=== PATIENT | female | born 1945 | race Caucasian/White ===

== ENCOUNTER 2017-06-21 18:51 | Emergency (ER) | payer MEDICARE ==
[~2017-06-21] VITALS: Ht 152.4 cm; Wt 95.2 kg
== END 2017-06-21 22:22 | disposition home or self-care (01) ==
LOC: ER 18:51
DX: I10 Essential (primary) hypertension (principal); Z87.891 Personal history of nicotine dependence
CPT/HCPCS: 99283

== ENCOUNTER → 2019-06-08 | Outpatient (CLI) | payer MEDICARE ==
[2019-06-08 15:42] LABS: BASOPHILS ABSOLUTE AUTO 0.07 K/mm3 (0.00-0.23); BASOPHILS PERCENT AUTO 1 % (0-2); EOSINOPHILS ABSOLUTE AUTO 0.14 K/mm3 (0.00-0.68); EOSINOPHILS PERCENT AUTO 1 % (0-6); Hematocrit 37.9 % (33.0-51.0); Hemoglobin 12.3 g/dL (11.5-16.0); IMMATURE GRAN ABSOLUTE AUTO 0.07 K/mm3 (0.00-0.10); IMMATURE GRAN PERCENT AUTO 1 % (0-1); LYMPHOCYTES ABSOLUTE AUTO 1.58 K/mm3 (0.84-5.20); LYMPHOCYTES PERCENT AUTO 12 % (21-46); MONOCYTES ABSOLUTE AUTO 1.27 K/mm3 (0.16-1.47); MONOCYTES PERCENT AUTO 9 % (4-13); Mean Corpuscular HGB 29.9 pg (26.0-34.0); Mean Corpuscular HGB Conc 32.5 g/dL (31.5-36.5); Mean Corpuscular Volume 92 fL (80-100); NEUTROPHILS ABSOLUTE AUTO 10.57 K/mm3 (1.96-9.15); NEUTROPHILS PERCENT AUTO 77 % (41-73); Platelet Count 495 K/mm3 (150-400); RDW Coefficient Variation 13.7 % (11.7-14.2); RDW Standard Deviation 46.5 fL (35.1-46.3); Red Blood Cell Count 4.11 M/mm3 (3.80-5.20)
[2019-06-08 15:46] LABS: Bun/Creatinine Ratio 16.9 (12.0-20.0); Creatinine, Blood 1.24 mg/dL (0.40-1.00)
== END | disposition home or self-care (01) ==
LOC: LAB EV 15:36 → LAB SHORT 15:36
PROVIDERS: Physician Assistant Surgical
DX: R06.00 Dyspnea, unspecified (principal)
CPT/HCPCS: 80048; 83880; 85025

== ENCOUNTER 2019-06-15 20:36 | Inpatient (IN) | payer MEDICARE ==
[~2019-06-15] VITALS: Ht 162.6 cm; Wt 114.4 kg
[2019-06-15 21:11] LABS: BASOPHILS ABSOLUTE AUTO 0.04 K/mm3 (0.00-0.23); BASOPHILS PERCENT AUTO 0 % (0-2); EOSINOPHILS ABSOLUTE AUTO 0.16 K/mm3 (0.00-0.68); EOSINOPHILS PERCENT AUTO 2 % (0-6); Hematocrit 36.8 % (33.0-51.0); Hemoglobin 11.8 g/dL (11.5-16.0); IMMATURE GRAN ABSOLUTE AUTO 0.09 K/mm3 (0.00-0.10); IMMATURE GRAN PERCENT AUTO 1 % (0-1); LYMPHOCYTES ABSOLUTE AUTO 1.63 K/mm3 (0.84-5.20); LYMPHOCYTES PERCENT AUTO 17 % (21-46); MONOCYTES ABSOLUTE AUTO 1.03 K/mm3 (0.16-1.47); MONOCYTES PERCENT AUTO 11 % (4-13); Mean Corpuscular HGB 29.6 pg (26.0-34.0); Mean Corpuscular HGB Conc 32.1 g/dL (31.5-36.5); Mean Corpuscular Volume 93 fL (80-100); Mean Platelet Volume 9.3 fL (9.1-12.4); NEUTROPHILS ABSOLUTE AUTO 6.57 K/mm3 (1.96-9.15); NEUTROPHILS PERCENT AUTO 69 % (41-73); Platelet Count 474 K/mm3 (150-400); RDW Coefficient Variation 13.6 % (11.7-14.2); RDW Standard Deviation 46.6 fL (35.1-46.3); Red Blood Cell Count 3.98 M/mm3 (3.80-5.20); White Blood Cell Count 9.52 K/mm3 (4.00-11.30)
[2019-06-15 21:33] LABS: Alanine Aminotransfer (ALT/SGP 36 U/L (12-78); Albumin, Blood 2.9 g/dL (3.4-5.0); Albumin/Globulin Ratio 0.8 (0.8-1.8); Alk Phos 103 U/L (50-136); Anion Gap 6 mmol/L (6-16); Aspartate Aminotrans (AST/SGOT 27 U/L (12-37); Bilirubin, Total 0.3 mg/dL (0.1-1.0); Blood Urea Nitrogen 19 mg/dL (8-24); Bun/Creatinine Ratio 20.4 (12.0-20.0); CO2, Blood 32 mmol/L (21-32); Calcium, Blood 8.6 mg/dL (8.5-10.1); Chloride, Blood 98 mmol/L (98-108); Creatinine, Blood 0.93 mg/dL (0.40-1.00); Globulin, Blood 3.8 g/dL (2.2-4.0); Glomerular Filtration Rate >60 (60-); Glucose, Blood 98 mg/dL (70-99); Potassium, Blood 4.3 mmol/L (3.5-5.5); Sodium, Blood 136 mmol/L (136-145); Total Protein, Blood 6.7 g/dL (6.4-8.2); Troponin I 0.046 ng/mL (0.000-0.040)
[2019-06-16] MEDS ORDERED: POTA10T PO (03:11)
[2019-06-16] MEDS ORDERED: CEFD300 PO (03:12)
[2019-06-16] MEDS ORDERED: ZOCOR20 MG PO (03:12)
[2019-06-16] MEDS ORDERED: FURO40 PO (03:12)
[2019-06-16] MEDS ORDERED: LISI20 PO (03:12)
[2019-06-16] MEDS ORDERED: AMLO5 PO (03:12)
[2019-06-16 06:46] LABS: Campylobacter Sp Not Detected (NOT DETECT); Enteroaggregative E. coli-EAEC Detected (NOT DETECT); Enteropathogenic E. coli-EPEC Detected (NOT DETECT); Enterotoxigenic E. coli-ETEC Not Detected (NOT DETECT); Plesiomonas Shigelloides Not Detected (NOT DETECT); Salmonella Sp Not Detected (NOT DETECT); Vibrio Cholerae Not Detected (NOT DETECT); Vibrio Sp Not Detected (NOT DETECT); Yersinia Enterocolitica Not Detected (NOT DETECT)
[2019-06-16 06:47] LABS: Adenovirus F 40/41 Not Detected (NOT DETECT); Astrovirus Not Detected (NOT DETECT); Cryptosporidium Not Detected (NOT DETECT); Cyclospora Cayetanensis Not Detected (NOT DETECT); E. Coli O157 Not Detected (NOT DETECT); Entamoeba Histolytica Not Detected (NOT DETECT); Giardia Lamblia Not Detected (NOT DETECT); Norovirus GI/GII Not Detected (NOT DETECT); Rotavirus A Not Detected (NOT DETECT); Sapovirus Not Detected (NOT DETECT); Shiga Toxin-prod E. coli-STEC Not Detected (NOT DETECT); Shigella/Enteroin E. coli-EIEC Not Detected (NOT DETECT)
[2019-06-16 10:08] LABS: Adenovirus Not Detected (NOT DETECT); Coronavirus 229E Not Detected (NOT DETECT); Coronavirus HKU1 Detected (NOT DETECT); Coronavirus NL63 Not Detected (NOT DETECT); Coronavirus OC43 Not Detected (NOT DETECT); Human Metapneumovirus Not Detected (NOT DETECT); Human Rhinovirus/Enterovirus Not Detected (NOT DETECT); Influenza A Not Detected (NOT DETECT); Influenza A/2009-H1 Not Detected (NOT DETECT); Influenza A/H1 Not Detected (NOT DETECT); Influenza A/H3 Not Detected (NOT DETECT); Influenza B Not Detected (NOT DETECT); Parainfluenza Virus 1 Not Detected (NOT DETECT); Parainfluenza Virus 2 Not Detected (NOT DETECT); Parainfluenza Virus 3 Not Detected (NOT DETECT)
[2019-06-16 10:09] LABS: Bordetella pertussis Not Detected (NOT DETECT); Chlamydophila pneumoniae Not Detected (NOT DETECT); Mycoplasma pneumoniae Not Detected (NOT DETECT); Parainfluenza Virus 4 Not Detected (NOT DETECT); Respiratory Syncytial Virus Not Detected (NOT DETECT)
--- NOTE | 2019-06-16 12:32 | NUR ---
Echocardiogram completed.
--- NOTE | 2019-06-16 18:18 | NUR ---
SHIFT SUMMARY PATIENT HAS NOT C/O SOB SINCE ARRIVAL TO FLOOR. RESP E/U, O2 @ 2L PER NC. APPETITE GOOD. CONT TO HAVE SMALL LOOSE BM'S AND INCONTINENT OF URINE W/ COUGHING. MOISTURE BARRIER USED WITH ATTENDS CHANGE TO PREVENT SBD. TURNS WELL AND STANDS WELL WHEN SHE DOES USE BSC. PLEASANT AND COOPERATIVE WITH CARE.
--- NOTE | 2019-06-17 06:08 | NUR ---
SHIFT SUMMARY PT RESTED WELL T/O NIGHT. LUNG SOUNDS DIMINISHED WITH INTERMITTENT EXP WHEEZING, DECREASED WITH BREATHING TX Q4H + SOLUMEDROL PER ORDERS. INCONTINENT IN ATTENDS FOR URINE + STOOL. LARGE PROLAPSED RECTUM NOTED, PT REPORTING ED DR REDUCED X2 WHILE IN ED. IVF INFUSING PER ORDERS. GOOD PO INTAKE. PT USES CALL LIGHT FOR ASSISTANCE. RESTING AT THIS TIME IN BED WITH CALL LIGHT IN REACH.
[2019-06-17 06:17] LABS: Albumin, Blood 2.5 g/dL (3.4-5.0); Anion Gap 6 mmol/L (6-16); Blood Urea Nitrogen 21 mg/dL (8-24); CO2, Blood 29 mmol/L (21-32); Calcium, Blood 8.8 mg/dL (8.5-10.1); Chloride, Blood 100 mmol/L (98-108); Creatinine, Blood 0.81 mg/dL (0.40-1.00); Glomerular Filtration Rate >60 (60-); Glucose, Blood 231 mg/dL (70-99); Phosphorus, Blood 2.9 mg/dL (2.5-4.9); Sodium, Blood 135 mmol/L (136-145)
--- NOTE | 2019-06-17 14:01 | NUR ---
SHIFT SUMMARY PT A&OX4, VSS, SOB W/EXERTION, LUNGS DIM, TCDB EDU & ENC. TELE SR 1 DEGREE BLOCK AT 85. INCONTINENT OF STOOL & URINE, ATTENDS ON; LARGE PROLAPSED RECTUM, HOSPITALIST AWARE. TASH PO, DENIES N&V. AMB W/ 1 PP MIN ASSIST TO BRP/CHAIR/BED. WILL REPORT TO NEXT RN.
--- NOTE | 2019-06-17 16:56 | NUR ---
assumed care of pt from lilly hankins rn.
[2019-06-18 05:28] LABS: Hematocrit 36.9 % (33.0-51.0); Hemoglobin 11.6 g/dL (11.5-16.0); Mean Corpuscular HGB 29.4 pg (26.0-34.0); Mean Corpuscular HGB Conc 31.4 g/dL (31.5-36.5); Mean Corpuscular Volume 93 fL (80-100); Mean Platelet Volume 9.6 fL (9.1-12.4); Platelet Count 504 K/mm3 (150-400); RDW Coefficient Variation 13.2 % (11.7-14.2); RDW Standard Deviation 46.1 fL (35.1-46.3); Red Blood Cell Count 3.95 M/mm3 (3.80-5.20); White Blood Cell Count 19.08 K/mm3 (4.00-11.30)
[2019-06-18 05:51] LABS: Albumin, Blood 2.5 g/dL (3.4-5.0); Anion Gap 8 mmol/L (6-16); Blood Urea Nitrogen 26 mg/dL (8-24); Bun/Creatinine Ratio 32.6 (12.0-20.0); CO2, Blood 28 mmol/L (21-32); Calcium, Blood 8.8 mg/dL (8.5-10.1); Chloride, Blood 97 mmol/L (98-108); Glomerular Filtration Rate >60 (60-); Glucose, Blood 230 mg/dL (70-99); Phosphorus, Blood 2.9 mg/dL (2.5-4.9); Potassium, Blood 5.2 mmol/L (3.5-5.5); Sodium, Blood 133 mmol/L (136-145)
--- NOTE | 2019-06-18 05:53 | NUR ---
PATIENT CONTINUES TO HAVE SOB WITH ANY EXERTION. SHE IS VERY ACTIVE IN BED AND IS ABLE TO HELP WITH ALL CARE. SHE IS INCONTINENT OF URINE AND HAS BEEN CHANGED 5 TIMES THIS NIGHT. SHE HAS HAD LOOSE STOOL MIXED WITH THE VOIDS THROUGH OUT THE NIGHT. NO OTHER ACUTE CHANGES.
--- NOTE | 2019-06-18 19:03 | NUR ---
SUMMARY PATIENT SAT IN CHAIR MOST OF THIS SHIFT, FAMILY IN TO VISIT. PT STATES FEELING BETTER- HAS FAINT AUDIBLE WHEEZES WITH ACTIVITY DENIES SOB. RECTAL PROLAPSE NOTED WITH COUGHING, PROTRUDING TISSUE APPEARS BEEFY PINK IN COLOR
[2019-06-19 04:39] LABS: Hematocrit 38.5 % (33.0-51.0); Mean Corpuscular HGB 28.8 pg (26.0-34.0); Mean Corpuscular HGB Conc 31.2 g/dL (31.5-36.5); Mean Corpuscular Volume 93 fL (80-100); Mean Platelet Volume 9.7 fL (9.1-12.4); Platelet Count 510 K/mm3 (150-400); RDW Coefficient Variation 13.2 % (11.7-14.2); Red Blood Cell Count 4.16 M/mm3 (3.80-5.20); White Blood Cell Count 16.98 K/mm3 (4.00-11.30)
--- NOTE | 2019-06-19 04:43 | NUR ---
SHIFT SUMMARY NO ACUTE CHANGES THIS SHIFT. STILL HAS SOME INTERM EXP WHEEZES, GIVEN ONE BREATHING TX DURING NIGHT. INCONT OF BM/VOIDS, ATTENDS CHANGED PRN. AWAITING SURGICAL CONSULT R/T RECTAL PROLAPSE. IS CURRENTLY UP IN CHAIR WITH MIN/ONE ASSIST WITH CALL LIGHT IN REACH. WILL GIVE REPORT TO ONCOMING RN.
[2019-06-19 05:02] LABS: Albumin, Blood 2.5 g/dL (3.4-5.0); Anion Gap 4 mmol/L (6-16); Blood Urea Nitrogen 32 mg/dL (8-24); Bun/Creatinine Ratio 36.8 (12.0-20.0); CO2, Blood 30 mmol/L (21-32); Calcium, Blood 8.9 mg/dL (8.5-10.1); Chloride, Blood 98 mmol/L (98-108); Creatinine, Blood 0.87 mg/dL (0.40-1.00); Glomerular Filtration Rate >60 (60-); Glucose, Blood 209 mg/dL (70-99); Phosphorus, Blood 2.8 mg/dL (2.5-4.9); Potassium, Blood 5.7 mmol/L (3.5-5.5); Sodium, Blood 132 mmol/L (136-145)
--- NOTE | 2019-06-19 19:12 | NUR ---
SUMMARY: NO ACUTE CHANGE TODAY. VSS, A/O. PT TOLERATED RA TODAY, ABLE TO WALK IN HALLS, CONTINUES TO BE SOB WITH MOBILITY. NO SAFETY CONCERNS AT THIS TIME
--- NOTE | 2019-06-20 03:25 | NUR ---
SHIFT SUMMARY NO ACUTE CHANGES THIS SHIFT. PT RESTED IN BED T/O MOST OF SHIFT. REQUESTED 2 BREATHING TX. SPO2 MAINTAINED ABOVE 93% ON RA. CONT TO BE INCONT OF BM, IS ABLE TO CALL WHEN ATTENDS NEED CHANGED. RECTAL PROLAPSE IS APPEARS TO BE A RED BEEFY COLOR. PT IS CURRENTLY RESTING IN BED WITH CALL LIGHT IN REACH. WILL CONT TO MONITOR AND GIVE REPORT TO RN.
[2019-06-20 04:40] LABS: BASOPHILS ABSOLUTE AUTO 0.01 K/mm3 (0.00-0.23); BASOPHILS PERCENT AUTO 0 % (0-2); EOSINOPHILS ABSOLUTE AUTO 0.01 K/mm3 (0.00-0.68); EOSINOPHILS PERCENT AUTO 0 % (0-6); Hematocrit 38.5 % (33.0-51.0); Hemoglobin 12.4 g/dL (11.5-16.0); IMMATURE GRAN ABSOLUTE AUTO 0.11 K/mm3 (0.00-0.10); IMMATURE GRAN PERCENT AUTO 1 % (0-1); LYMPHOCYTES ABSOLUTE AUTO 0.37 K/mm3 (0.84-5.20); LYMPHOCYTES PERCENT AUTO 3 % (21-46); MONOCYTES ABSOLUTE AUTO 0.46 K/mm3 (0.16-1.47); MONOCYTES PERCENT AUTO 3 % (4-13); Mean Corpuscular HGB 29.6 pg (26.0-34.0); Mean Corpuscular HGB Conc 32.2 g/dL (31.5-36.5); Mean Corpuscular Volume 92 fL (80-100); Mean Platelet Volume 9.7 fL (9.1-12.4); NEUTROPHILS ABSOLUTE AUTO 13.08 K/mm3 (1.96-9.15); NEUTROPHILS PERCENT AUTO 93 % (41-73); Platelet Count 528 K/mm3 (150-400); RDW Coefficient Variation 13.2 % (11.7-14.2); RDW Standard Deviation 45.1 fL (35.1-46.3); Red Blood Cell Count 4.19 M/mm3 (3.80-5.20); White Blood Cell Count 14.04 K/mm3 (4.00-11.30)
[2019-06-20 05:07] LABS: Anion Gap 5 mmol/L (6-16); Blood Urea Nitrogen 37 mg/dL (8-24); Bun/Creatinine Ratio 42.6 (12.0-20.0); CO2, Blood 30 mmol/L (21-32); Calcium, Blood 8.6 mg/dL (8.5-10.1); Chloride, Blood 96 mmol/L (98-108); Creatinine, Blood 0.87 mg/dL (0.40-1.00); Glomerular Filtration Rate >60 (60-); Glucose, Blood 235 mg/dL (70-99); Magnesium, Blood 2.5 mg/dL (1.6-2.4); Sodium, Blood 131 mmol/L (136-145)
--- NOTE | 2019-06-20 09:00 | NUR ---
assumed care of patient at 0900 from Martha BRIDGES, Pt reclined in chair no acute distress. Denies needs. Call light in reach.
--- NOTE | 2019-06-20 17:04 | NUR ---
SUMMARY: NO ACUTE CHANGE TODAY. VSS, A/O. PT CONTINUES ON RA AND HAS SOME SOB WITH EXERTION, PRN BREATHING TX HELPFUL. PLAN IS FOR DC HOME WITH HOME HEALTH TOMORROW. NO SAFETY CONCERNS A THIS TIME. WILL CTM AND REPORT TO NURA BRIDGES.
--- NOTE | 2019-06-20 22:28 | NUR ---
C/O SOB, WHEN PLACED ON O2 SHE STATES THAT SHE FEELS MUCH BETTER. AUDIBLE WHEEZING RESOLVED, WILL CONTACT RT. SAFETY MEASURES IN PLACE. WILL CONTINUE TO MONITOR,
[2019-06-21 04:28] LABS: BASOPHILS ABSOLUTE AUTO 0.02 K/mm3 (0.00-0.23); BASOPHILS PERCENT AUTO 0 % (0-2); EOSINOPHILS PERCENT AUTO 0 % (0-6); Hematocrit 39.9 % (33.0-51.0); Hemoglobin 12.7 g/dL (11.5-16.0); IMMATURE GRAN ABSOLUTE AUTO 0.22 K/mm3 (0.00-0.10); IMMATURE GRAN PERCENT AUTO 2 % (0-1); LYMPHOCYTES ABSOLUTE AUTO 0.46 K/mm3 (0.84-5.20); LYMPHOCYTES PERCENT AUTO 3 % (21-46); MONOCYTES ABSOLUTE AUTO 0.73 K/mm3 (0.16-1.47); MONOCYTES PERCENT AUTO 5 % (4-13); Mean Corpuscular HGB 29.3 pg (26.0-34.0); Mean Corpuscular HGB Conc 31.8 g/dL (31.5-36.5); Mean Corpuscular Volume 92 fL (80-100); Mean Platelet Volume 9.7 fL (9.1-12.4); NEUTROPHILS ABSOLUTE AUTO 12.24 K/mm3 (1.96-9.15); NEUTROPHILS PERCENT AUTO 90 % (41-73); Platelet Count 531 K/mm3 (150-400); RDW Coefficient Variation 13.3 % (11.7-14.2); RDW Standard Deviation 45.7 fL (35.1-46.3); Red Blood Cell Count 4.34 M/mm3 (3.80-5.20); White Blood Cell Count 13.67 K/mm3 (4.00-11.30)
[2019-06-21 04:45] LABS: Anion Gap 3 mmol/L (6-16); Blood Urea Nitrogen 37 mg/dL (8-24); Bun/Creatinine Ratio 43.3 (12.0-20.0); CO2, Blood 30 mmol/L (21-32); Calcium, Blood 8.8 mg/dL (8.5-10.1); Chloride, Blood 97 mmol/L (98-108); Creatinine, Blood 0.86 mg/dL (0.40-1.00); Glomerular Filtration Rate >60 (60-); Glucose, Blood 211 mg/dL (70-99); Magnesium, Blood 2.5 mg/dL (1.6-2.4); Potassium, Blood 5.3 mmol/L (3.5-5.5); Sodium, Blood 130 mmol/L (136-145)
--- NOTE | 2019-06-21 06:01 | NUR ---
SHIFT SUMMARY RESTING WITH EASE AT THIS TIME. RESPIRATIONS EVEN AND UNLABORED ON RA. HAS NO C/O PAIN THIS SHIFT. INCONTINENT OF BOWEL AND BLADDER, WEARS DEPENDS. RIGHT AC PIV IS PATENT, FLUSIHING WITH EASE. DENIES FURTHER NEEDS OR WANTS AT THIS TIME. SAFETY MEASURES IN PLACE. WILL GIVE HAND OFF TO ONCOMING SHIFT USING SBAR.
--- NOTE | 2019-06-21 09:09 | NUR ---
DR JOHNSON HERE TO SEE PT, DISCUSSED PT'S STATUS.
--- NOTE | 2019-06-21 11:40 | NUR ---
PT RECENTLY WORKING WITH OT.
--- NOTE | 2019-06-21 12:29 | NUR ---
O2 LEVEL EARLIER WHILE PT WORKED WITH OT WAS 92% AND IS 94% AT THIS TIME UP IN CHAIR AFTER HAVING LUNCH.
[2019-06-21] MEDS ORDERED: PRED10 PO (14:31)
--- NOTE | 2019-06-21 18:51 | NUR ---
SHIFT SUMMARY PT EATING AND DRINKING, VOIDING IN ATTENDS. PT REPORTS BREATHING BETTER. PT WAITING TO BE DISCHARGED ONCE FAMILY GETS HERE TO PICK PT UP. PAPERWORK COMPLETED EARLIER TODAY. PT IV OUT, BELONGNINGS READY. TELE BEEN TAKEN OFF.
--- NOTE | 2019-06-21 19:47 | NUR ---
DISCHARGE: PT EATING AND DRINKING, VOIDING. PT REPORTS BREATHING MUCH BETTER. PT HAD HOME O2 EVAL EARLIER TODAY. FAMILY HERE TO GET PT, REPORTS UNDERSTANDING OF DISCHARGE INSTRUCTIONS. MEDICATION CALLED TO [facility] IN [place] PER FAMILY REQ. IV OUT EARLIER TODAY. FIRST PRESS OPERATOR ASSISTED PT OUT IN W/C, BELONGINGS SENT WITH PT.
== END 2019-06-21 19:35 | disposition home or self-care (01) | DRG 189 ==
LOC: ER 20:36 → SURS 06-16 03:31 → ERHOLD 06-16 03:31 → SURS 06-16 11:53
PROVIDERS: Internal Medicine; Physician Assistant; ADMIT Family Medicine
DX: J96.01 Acute respiratory failure with hypoxia (principal); Z68.41 Body mass index [BMI] 40.0-44.9, adult; J44.1 Chronic obstructive pulmonary disease with (acute) exacerbation; A04.4 Other intestinal Escherichia coli infections; Z85.3 Personal history of malignant neoplasm of breast; Z90.11 Acquired absence of right breast and nipple; Z87.891 Personal history of nicotine dependence; D47.3 Essential (hemorrhagic) thrombocythemia; B97.29 Other coronavirus as the cause of diseases classified elsewhere; D72.829 Elevated white blood cell count, unspecified; K62.3 Rectal prolapse; J20.8 Acute bronchitis due to other specified organisms; E66.01 Morbid (severe) obesity due to excess calories; I10 Essential (primary) hypertension; R79.89 Other specified abnormal findings of blood chemistry
CPT/HCPCS: 0097U; 0099U; 36415; 71260; 80048; 80053; 80069; 83735; 83880; 84484; 85025; 85027; 93005; 93010; 93306; 93970; 94640; 94644; 94760; 94761; 96372-59; 96374-59; 97110; 97116; 97162; 97166; 97535; 99285-25; A9270; J1650; J2930; J7030; J7512; Q9967

== ENCOUNTER → 2020-03-19 | Outpatient (CLI) | payer MEDICARE ==
[~2020-03-19] MED LIST: AMLO5 PO; CEFD300 PO; FURO40 PO; FUROSEMIDE40 MG PO; KLOR-CON 1010 ME3 PO; LISI20 PO; POTA10T PO; PRED10 PO; ZOCOR20 MG PO
[2020-03-19 18:55] LABS: BASOPHILS ABSOLUTE AUTO 0.05 K/mm3 (0.00-0.23); BASOPHILS PERCENT AUTO 1 % (0-2); EOSINOPHILS ABSOLUTE AUTO 0.06 K/mm3 (0.00-0.68); EOSINOPHILS PERCENT AUTO 1 % (0-6); Hematocrit 46.6 % (33.0-51.0); Hemoglobin 14.8 g/dL (11.5-16.0); IMMATURE GRAN ABSOLUTE AUTO 0.01 K/mm3 (0.00-0.10); IMMATURE GRAN PERCENT AUTO 0 % (0-1); LYMPHOCYTES ABSOLUTE AUTO 2.15 K/mm3 (0.84-5.20); LYMPHOCYTES PERCENT AUTO 30 % (21-46); MONOCYTES ABSOLUTE AUTO 0.65 K/mm3 (0.16-1.47); MONOCYTES PERCENT AUTO 9 % (4-13); Mean Corpuscular HGB 28.7 pg (26.0-34.0); Mean Corpuscular HGB Conc 31.8 g/dL (31.5-36.5); Mean Corpuscular Volume 91 fL (80-100); Mean Platelet Volume 10.5 fL (9.1-12.4); NEUTROPHILS ABSOLUTE AUTO 4.22 K/mm3 (1.96-9.15); NEUTROPHILS PERCENT AUTO 59 % (41-73); Platelet Count 400 K/mm3 (150-400); RDW Coefficient Variation 14.3 % (11.7-14.2); RDW Standard Deviation 47.6 fL (35.1-46.3); Red Blood Cell Count 5.15 M/mm3 (3.80-5.20); White Blood Cell Count 7.14 K/mm3 (4.00-11.30)
[2020-03-19 20:33] LABS: Bilirubin, Total 0.7 mg/dL (0.1-1.0); Creatinine, Blood 0.97 mg/dL (0.40-1.00); Glomerular Filtration Rate 59 (60-); Glucose, Blood 114 mg/dL (70-99)
[2020-03-19 20:34] LABS: Alanine Aminotransfer (ALT/SGP 28 U/L (12-78); Albumin, Blood 3.8 g/dL (3.4-5.0); Albumin/Globulin Ratio 1.1 (0.8-1.8); Alk Phos 122 U/L (50-136); Anion Gap 7 mmol/L (6-16); Aspartate Aminotrans (AST/SGOT 19 U/L (12-37); Blood Urea Nitrogen 29 mg/dL (8-24); Bun/Creatinine Ratio 29.8 (12.0-20.0); CO2, Blood 27 mmol/L (21-32); Calcium, Blood 9.4 mg/dL (8.5-10.1); Chloride, Blood 107 mmol/L (98-108); Cholesterol 238 mg/dL (50-200); Globulin, Blood 3.5 g/dL (2.2-4.0); HDL Cholesterol 79 mg/dL (>39); LDL/HDL RATIO 1.8; Low Density Lipoprotein Chol 140 mg/dL (0-110); Potassium, Blood 3.8 mmol/L (3.5-5.5); Sodium, Blood 141 mmol/L (136-145); Total Protein, Blood 7.3 g/dL (6.4-8.2); Triglycerides 93 mg/dL (30-160); Very Low Density Lipoprot Chol 19 mg/dL (6-32)
== END | disposition home or self-care (01) ==
LOC: LAB 17:55
PROVIDERS: Family Medicine
DX: I10 Essential (primary) hypertension (principal); E78.5 Hyperlipidemia, unspecified
CPT/HCPCS: 80053; 80061; 85025

== ENCOUNTER 2020-11-09 01:17 | Emergency (ER) | payer OTHER, MEDICARE ==
[~2020-11-09] VITALS: Ht 165.1 cm; Wt 108.4 kg
[~2020-11-09 01:17] MED LIST changes: -FUROSEMIDE40 MG PO; -KLOR-CON 1010 ME3 PO
[2020-11-09] MEDS ORDERED: FUROSEMIDE40 MG PO (04:32)
[2020-11-09] MEDS ORDERED: KLOR-CON 1010 ME3 PO (04:32)
== END 2020-11-09 05:13 | disposition home or self-care (01) ==
LOC: ER 01:17
DX: S01.01XA Laceration without foreign body of scalp, initial encounter (principal); I11.0 Hypertensive heart disease with heart failure; I50.9 Heart failure, unspecified; Z87.891 Personal history of nicotine dependence; W01.190A Fall on same level from slipping, tripping and stumbling with subsequent striking against furniture, initial encounter
CPT/HCPCS: 12001; 70450; 99283-25

== ENCOUNTER 2021-04-19 20:07 | Emergency (ER) | payer MEDICARE ==
[~2021-04-19] VITALS: Ht 160 cm; Wt 77.1 kg
[~2021-04-19 20:07] MED LIST changes: +FUROSEMIDE40 MG PO; +KLOR-CON 1010 ME3 PO
== END 2021-04-19 21:09 | disposition home or self-care (01) ==
LOC: ER 20:07
DX: U07.1 COVID-19 (principal); I11.0 Hypertensive heart disease with heart failure; I50.9 Heart failure, unspecified; Z87.891 Personal history of nicotine dependence; Z79.899 Other long term (current) drug therapy
CPT/HCPCS: 99282

== ENCOUNTER → 2021-12-23 | Outpatient (CLI) | payer MEDICARE ==
[2021-12-23 20:05] LABS: Bun/Creatinine Ratio 30.4 (12.0-20.0); Calcium, Blood 9.1 mg/dL (8.5-10.1); Creatinine, Blood 0.79 mg/dL (0.40-1.00); Potassium, Blood 3.3 mmol/L (3.5-5.5)
== END | disposition home or self-care (01) ==
LOC: LAB SHORT 17:52 → LAB 17:52
PROVIDERS: Nurse Practitioner Family
DX: E87.6 Hypokalemia (principal)
CPT/HCPCS: 80048

== ENCOUNTER → 2022-07-20 | Outpatient (CLI) | payer MEDICARE ==
[2022-07-21 10:24] LABS: Albumin, Blood 3.8 g/dL (3.4-5.0); Albumin/Globulin Ratio 1.1 (0.8-1.8); Bilirubin, Total 0.5 mg/dL (0.1-1.0); Bun/Creatinine Ratio 31.6 (12.0-20.0); Calcium, Blood 9.1 mg/dL (8.5-10.1); Creatinine, Blood 0.82 mg/dL (0.40-1.00); Globulin, Blood 3.4 g/dL (2.2-4.0); Potassium, Blood 3.7 mmol/L (3.5-5.5); Total Protein, Blood 7.2 g/dL (6.4-8.2)
[2022-07-21 10:25] LABS: BASOPHILS ABSOLUTE AUTO 0.07 K/mm3 (0.00-0.23); BASOPHILS PERCENT AUTO 1 % (0-2); EOSINOPHILS ABSOLUTE AUTO 0.08 K/mm3 (0.00-0.68); EOSINOPHILS PERCENT AUTO 1 % (0-6); Hematocrit 41.6 % (33.0-51.0); Hemoglobin 13.7 g/dL (11.5-16.0); IMMATURE GRAN ABSOLUTE AUTO 0.04 K/mm3 (0.00-0.10); IMMATURE GRAN PERCENT AUTO 1 % (0-1); LYMPHOCYTES ABSOLUTE AUTO 1.41 K/mm3 (0.84-5.20); LYMPHOCYTES PERCENT AUTO 24 % (21-46); MONOCYTES ABSOLUTE AUTO 0.83 K/mm3 (0.16-1.47); MONOCYTES PERCENT AUTO 14 % (4-13); Mean Corpuscular HGB 29.7 pg (26.0-34.0); Mean Corpuscular HGB Conc 32.9 g/dL (31.5-36.5); Mean Corpuscular Volume 90 fL (80-100); Mean Platelet Volume 11.3 fL (9.1-12.4); NEUTROPHILS ABSOLUTE AUTO 3.48 K/mm3 (1.96-9.15); NEUTROPHILS PERCENT AUTO 59 % (41-73); Platelet Count 348 K/mm3 (150-400); RDW Coefficient Variation 14.4 % (11.7-14.2); RDW Standard Deviation 45.9 fL (35.1-46.3); Red Blood Cell Count 4.61 M/mm3 (3.80-5.20); White Blood Cell Count 5.91 K/mm3 (4.00-11.30)
== END | disposition home or self-care (01) ==
LOC: LAB 16:54 → LAB SHORT 16:54
PROVIDERS: Nurse Practitioner Family
DX: I10 Essential (primary) hypertension (principal); E87.6 Hypokalemia
CPT/HCPCS: 80053; 85025

== ENCOUNTER → 2023-05-18 | Outpatient (CLI) | payer MEDICARE ==
[2023-05-18 17:36] LABS: BASOPHILS ABSOLUTE AUTO 0.06 K/mm3 (0.00-0.23); BASOPHILS PERCENT AUTO 1 % (0-2); EOSINOPHILS ABSOLUTE AUTO 0.08 K/mm3 (0.00-0.68); EOSINOPHILS PERCENT AUTO 2 % (0-6); Hematocrit 43.1 % (33.0-51.0); Hemoglobin 14.3 g/dL (11.5-16.0); IMMATURE GRAN ABSOLUTE AUTO 0.01 K/mm3 (0.00-0.10); IMMATURE GRAN PERCENT AUTO 0 % (0-1); LYMPHOCYTES ABSOLUTE AUTO 1.39 K/mm3 (0.84-5.20); LYMPHOCYTES PERCENT AUTO 27 % (21-46); MONOCYTES ABSOLUTE AUTO 0.48 K/mm3 (0.16-1.47); MONOCYTES PERCENT AUTO 9 % (4-13); Mean Corpuscular HGB 29.7 pg (26.0-34.0); Mean Corpuscular HGB Conc 33.2 g/dL (31.5-36.5); Mean Corpuscular Volume 90 fL (80-100); Mean Platelet Volume 11.1 fL (9.1-12.4); NEUTROPHILS ABSOLUTE AUTO 3.23 K/mm3 (1.96-9.15); NEUTROPHILS PERCENT AUTO 62 % (41-73); Platelet Count 365 K/mm3 (150-400); RDW Coefficient Variation 13.4 % (11.7-14.2); RDW Standard Deviation 43.7 fL (35.1-46.3); Red Blood Cell Count 4.81 M/mm3 (3.80-5.20); White Blood Cell Count 5.25 K/mm3 (4.00-11.30)
[2023-05-18 18:00] LABS: CHOL/HDL RATIO 2.9; Cholesterol 220 mg/dL (50-200); HDL Cholesterol 75 mg/dL (>39); LDL/HDL RATIO 1.8; Low Density Lipoprotein Chol 132 mg/dL (0-110); Triglycerides 65 mg/dL (30-160); Very Low Density Lipoprot Chol 13 mg/dL (6-32)
[2023-05-20 14:12] LABS: A/G RATIO 1.7 (1.2-2.2); BILIRUBIN, TOTAL 0.5 mg/dL (0.0-1.2); CALCIUM, SERUM 9.7 mg/dL (8.7-10.3); CREATININE, SERUM 1.05 mg/dL (0.57-1.00); GLOBULIN, TOTAL 2.4 g/dL (1.5-4.5); POTASSIUM, SERUM 4.5 mmol/L (3.5-5.2); PROTEIN, TOTAL, SERUM 6.5 g/dL (6.0-8.5)
== END | disposition home or self-care (01) ==
LOC: LAB 12:05 → LAB SHORT 12:05
PROVIDERS: Nurse Practitioner Family
DX: E78.5 Hyperlipidemia, unspecified (principal); E87.6 Hypokalemia; I10 Essential (primary) hypertension
CPT/HCPCS: 80053; 80061; 85025